=== PATIENT | female | born 1990 | race African-American/Black ===

== ENCOUNTER 2021-05-29 14:29 | Inpatient (IN) | payer MEDICAID, OTHER ==
[~2021-05-29] VITALS: Ht 165.1 cm; Wt 63.4 kg
[2021-05-29] MEDS ORDERED: PANTOPRAZOLE 40 MG/10 ML VIAL INJ IV ONE (14:45)
[2021-05-29] MEDS ORDERED: SODIUM CHLORIDE 0.9% 1,000 ML IV ONE ×2 (14:45→16:15)
[2021-05-29] MEDS ORDERED: PROCHLORPERAZINE EDISYLATE 5 MG/ML 2ML VIAL IV ONE (14:45)
[2021-05-29 15:09] LABS: Basophils # (auto) 0 10 ^3/uL (0-0.2); Basophils % (auto) 0.5 % (0.0-2.0); Eosinophils # (auto) 0 10 ^3/uL (0-0.8); Eosinophils % (auto) 0.3 % (0.0-7.0); Hematocrit 30.2 % (36.0-46.0); Hemoglobin 9.9 g/dL (12.2-16.2); Lymphocytes # (auto) 3.5 10 ^3/uL (0.4-5.4); Lymphocytes % (auto) 42.9 % (10.0-50.0); Mean Corpuscular Hemoglobin 30.7 pg (28.0-32.0); Mean Corpuscular Hgb Conc. 32.7 g/dL (32.0-36.0); Mean Corpuscular Volume 93.9 fL (80.0-100.0); Monocytes # (auto) 0.3 10 ^3/uL (0-1.3); Monocytes % (auto) 4.2 % (0.0-12.0); Neutrophils # (auto) 4.2 10 ^3/uL (1.6-8.6); Neutrophils % (auto) 52.1 % (37.0-80.0); Nucleated Red Blood Cells % 0.1 %; Red Blood Cells 3.22 10^6/uL (4.0-5.20); Red Cell Distribution Width 14.7 % (11.8-14.3); White Blood Cell 8.1 10^3/uL (4.4-10.8)
[2021-05-29 15:32] LABS: Albumin 2.7 g/dL (3.4-5.0); BUN/Creatinine Ratio 8.8; Bilirubin, Total 0.4 mg/dL (0.2-1.0); Calcium 7.9 mg/dL (8.5-10.1); Potassium 3.1 mmol/L (3.5-5.1)
[2021-05-29] MEDS ORDERED: PHENYLEPHRINE HCL 10 MG/ML VL IV ONE (15:59)
[2021-05-29] MEDS ORDERED: HYDROmorphone HCL 2 MG/ML VL ONE (16:37)
[2021-05-29] MEDS ORDERED: PROPOFOL 10 MG/ML 20 ML IV ONE (16:39)
[2021-05-29] MEDS ORDERED: SUCCINYLCHOLINE CHLORIDE 20 MG/ML 10ML VIAL IV ONE (16:44)
[2021-05-29] MEDS ORDERED: ROCURONIUM 10MG/ML 10ML VIAL IV ONE (16:52)
[2021-05-29 17:54] LABS: INR 1.33 (0.9-1.15); Partial Thromboplastin Time 29.1 sec (23.6-33.0)
[2021-05-29] MEDS ORDERED: HYDROmorphone HCL 2 MG/ML VL IV PRN ×2 (19:00)
[2021-05-29] MEDS ORDERED: ONDANSETRON HCL 4 MG/2 ML VIAL IV PRN (19:00)
[2021-05-29] MEDS ORDERED: MORPHINE SULFATE INJECTION 2 MG/ML SYRG IV PRN (19:15)
[2021-05-29] MEDS ORDERED: NITROGLYCERIN 0.4 MG SL TAB SL PRN (19:15)
[2021-05-29 20:15] VITALS: BP 100/57
[2021-05-29] MEDS: ceFAZolin 1GM/50ML 50 ML IV SCH (20:39)
[2021-05-29] MEDS: SODIUM CHLORIDE 0.9% 1,000 ML IV SCH (20:41)
[2021-05-29 21:32] LABS: Urine Bacteria NONE SEEN /hpf (None Seen); Urine Blood Negative /uL (Negative); Urine Mucus FEW (None Seen); Urine Specific Gravity 1.018 (1.001-1.035); Urine WBC 5 /hpf (0 - 5)
[2021-05-29 21:42] LABS: Amphetamine Screen, Urine NEGATIVE (NEGATIVE); Barbiturate Scree,Urine NEGATIVE (NEGATIVE); Benzodiazephine Screen, Urine NEGATIVE (NEGATIVE); Cannabinoid Screen, Urine POSITIVE (NEGATIVE); Cocaine Screen, Urine NEGATIVE (NEGATIVE); Phencyclidine Screen, Urine NEGATIVE (NEGATIVE)
[2021-05-29 21:49] LABS: Opiate Scree,Urine NEGATIVE (NEGATIVE)
[2021-05-29 21:54] LABS: Basophils # (auto) 0 10 ^3/uL (0-0.2); Basophils % (auto) 0.1 % (0.0-2.0); Eosinophils # (auto) 0 10 ^3/uL (0-0.8); Hematocrit 43.2 % (36.0-46.0); Hemoglobin 14.4 g/dL (12.2-16.2); Lymphocytes % (auto) 4.8 % (10.0-50.0); Mean Corpuscular Hemoglobin 30.9 pg (28.0-32.0); Mean Corpuscular Hgb Conc. 33.2 g/dL (32.0-36.0); Monocytes # (auto) 0.5 10 ^3/uL (0-1.3); Monocytes % (auto) 2.7 % (0.0-12.0); Neutrophils # (auto) 18.4 10 ^3/uL (1.6-8.6); Neutrophils % (auto) 92.4 % (37.0-80.0); Red Blood Cells 4.65 10^6/uL (4.0-5.20); White Blood Cell 19.9 10^3/uL (4.4-10.8)
[2021-05-29 22:00] VITALS: BP 100/57
[2021-05-29] MEDS: MORPHINE SULFATE INJECTION 2 MG/ML SYRG IV PRN (22:42)
[2021-05-30] MEDS: MORPHINE SULFATE INJECTION 2 MG/ML SYRG IV PRN ×3 (03:17→13:39)
[2021-05-30] MEDS: SODIUM CHLORIDE 0.9% 1,000 ML IV SCH ×3 (03:29→15:18)
[2021-05-30] MEDS: ceFAZolin 1GM/50ML 50 ML IV SCH ×3 (03:29→19:40)
[2021-05-30 05:00] VITALS: BP 105/48
[2021-05-30 07:05] LABS: Basophils # (auto) 0 10 ^3/uL (0-0.2); Eosinophils # (auto) 0 10 ^3/uL (0-0.8); Hematocrit 39.3 % (36.0-46.0); Hemoglobin 13.4 g/dL (12.2-16.2); Lymphocytes % (auto) 6.6 % (10.0-50.0); Mean Corpuscular Hemoglobin 31.2 pg (28.0-32.0); Mean Corpuscular Volume 91.6 fL (80.0-100.0); Monocytes # (auto) 0.8 10 ^3/uL (0-1.3); Monocytes % (auto) 4.9 % (0.0-12.0); Neutrophils # (auto) 13.6 10 ^3/uL (1.6-8.6); Neutrophils % (auto) 88.5 % (37.0-80.0); Red Blood Cells 4.29 10^6/uL (4.0-5.20); Red Cell Distribution Width 14.8 % (11.8-14.3); White Blood Cell 15.4 10^3/uL (4.4-10.8)
[2021-05-30 07:06] LABS: Potassium 4.5 mmol/L (3.5-5.1)
[2021-05-30 07:21] LABS: Albumin 2.4 g/dL (3.4-5.0); BUN/Creatinine Ratio 16.4; Bilirubin, Total 0.5 mg/dL (0.2-1.0); Calcium 8.1 mg/dL (8.5-10.1); Total Protein 5.3 g/dL (6.4-8.2)
[2021-05-30 09:00] VITALS: BP 113/57
[2021-05-30 12:39] VITALS: BP 117/70
[2021-05-30] MEDS ORDERED: BISACODYL 5 MG EC TAB PO PRN (15:30)
[2021-05-30 17:00] VITALS: BP 110/72
[2021-05-30] MEDS: HYDROcodone-ACET 10/325MG TAB PO PRN (19:07)
[2021-05-30] MEDS: DOCUSATE SOD 100 MG CAP PO SCH (21:14)
[2021-05-30 22:00] VITALS: BP 109/66
[2021-05-30] MEDS ORDERED: BISACODYL 5 MG EC TAB PO ONE (22:00)
[2021-05-31] MEDS: HYDROcodone-ACET 10/325MG TAB PO PRN ×2 (01:36→11:45)
[2021-05-31] MEDS: SODIUM CHLORIDE 0.9% 1,000 ML IV SCH ×2 (03:53→23:35)
[2021-05-31] MEDS: ceFAZolin 1GM/50ML 50 ML IV SCH ×3 (03:53→19:59)
[2021-05-31 05:00] VITALS: BP 111/66
[2021-05-31 09:00] VITALS: BP 130/79
[2021-05-31] MEDS: DOCUSATE SOD 100 MG CAP PO SCH ×2 (10:00→21:46)
[2021-05-31] MEDS: ONDANSETRON HCL 4 MG/2 ML VIAL IV PRN ×2 (10:01→13:54)
[2021-05-31 13:00] VITALS: BP 116/73
[2021-05-31] MEDS ORDERED: METOCLOPRAMIDE HCL 5MG/ml INJ 2ml VIAL IV PRN (15:45)
[2021-05-31] MEDS ORDERED: FAMOTIDINE (10MG/ML) 2ML VL IV ONE (15:45)
[2021-05-31] MEDS ORDERED: PROMETHAZINE HCL 25 MG/ML 1ML ONE (16:11)
[2021-05-31] MEDS: PROMETHAZINE HCL 25 MG/ML 1ML IV PRN ×2 (16:28→23:10)
[2021-05-31] MEDS ORDERED: HYDROcodone-ACET 5/325MG TAB PO PRN (16:30)
[2021-05-31] MEDS ORDERED: IBUPROFEN 600 MG TAB PO PRN (16:30)
[2021-05-31 17:00] VITALS: BP 105/71
[2021-05-31 22:00] VITALS: BP 126/62
[2021-06-01] MEDS: ceFAZolin 1GM/50ML 50 ML IV SCH ×2 (04:44→10:54)
[2021-06-01 05:00] VITALS: BP 124/63
[2021-06-01 07:40] VITALS: BP 108/68
[2021-06-01 09:00] VITALS: BP 121/70
[2021-06-01] MEDS: PROMETHAZINE HCL 25 MG/ML 1ML IV PRN (10:54)
[2021-06-01] MEDS: DOCUSATE SOD 100 MG CAP PO SCH (10:54)
== END 2021-06-01 16:00 | disposition home or self-care (01) | DRG 547 ==
LOC: ER 14:29 → EDBD 14:29 → ER 17:18 → TELE-WESTW 19:14
PROVIDERS: ADMIT Obstetrics & Gynecology; ATTEND Obstetrics & Gynecology
PROC: 0WCG0ZZ Extirpation of Matter from Peritoneal Cavity, Open Approach (ICD-10-PCS; 2021-05-29)
PROC: 0UT60ZZ Resection of Left Fallopian Tube, Open Approach (ICD-10-PCS; 2021-05-29)
PROC: 10T20ZZ Resection of Products of Conception, Ectopic, Open Approach (ICD-10-PCS; principal; 2021-05-29 17:33)
DX: O00.102 Left tubal pregnancy without intrauterine pregnancy (principal); K66.1 Hemoperitoneum; O08.89 Other complications following an ectopic and molar pregnancy; D62 Acute posthemorrhagic anemia; I95.9 Hypotension, unspecified; F12.90 Cannabis use, unspecified, uncomplicated; Z20.822 Contact with and (suspected) exposure to COVID-19
CPT/HCPCS: 36415; 76801; 80053; 80307; 81001; 84702; 85025; 85379; 85610; 85730; 86850; 86900; 86901; 86920; 87081; 87426; 93005; 96361; 96374; 96375; 99291; C9113; G0378; J0330; J0690; J2405; J2704; J3490